=== PATIENT | female | born 1985 | race Caucasian/White ===

== ENCOUNTER 2017-09-07 12:10 | Emergency (ER) | payer OTHER ==
[~2017-09-07] VITALS: Ht 160 cm; Wt 65.4 kg
[2017-09-07 15:16] VITALS: BP 142/90
== END 2017-09-07 16:57 | disposition home or self-care (01) ==
LOC: ER 12:10
DX: H57.04 Mydriasis (principal); Z88.8 Allergy status to other drugs, medicaments and biological substances
CPT/HCPCS: 70450